=== PATIENT | female | born 1950 | race Caucasian/White ===

== ENCOUNTER → 2016-04-22 | Outpatient (CLI) | payer MEDICARE ==
[2016-04-22 12:14] LABS: MEAN CORPUSCULAR HEMOGLOBIN 30.2 pg (27.0-33.0); MEAN CORPUSCULAR HGB CONC 31.8 g/dl (32.0-36.5); MEAN CORPUSCULAR VOLUME 95.2 fl (80.0-96.0); RED CELL DISTRIBUTION WIDTH 12.5 % (11.5-14.5); WHITE BLOOD COUNT 7.1 K/mm3 (4.0-10.0)
[2016-04-22 12:28] LABS: ALBUMIN 3.8 GM/DL (3.2-5.2); ALBUMIN/GLOBULIN RATIO 1.23 (1.00-1.93); BILIRUBIN,TOTAL 0.4 MG/DL (0.2-1.0); CALCIUM LEVEL 9.1 MG/DL (8.8-10.2); CREATININE FOR GFR 1.16 MG/DL (0.55-1.02); GLOMERULAR FILTRATION RATE 49.8 (>45); POTASSIUM SERUM 4.1 MEQ/L (3.5-5.1); TOTAL PROTEIN 6.9 GM/DL (6.4-8.2)
== END ==
LOC: M WUC 08:48
PROVIDERS: ATTEND Nurse Practitioner Family
DX: E78.5 Hyperlipidemia, unspecified (principal); I10 Essential (primary) hypertension; D53.9 Nutritional anemia, unspecified; E55.9 Vitamin D deficiency, unspecified

== ENCOUNTER → 2016-09-30 | Outpatient (REF) | payer MEDICARE | LOC: M SFHCPLAZ 09:58 | PROVIDERS: ATTEND Family Medicine | DX: E66.01 Morbid (severe) obesity due to excess calories (principal); Z68.41 Body mass index [BMI] 40.0-44.9, adult; F33.42 Major depressive disorder, recurrent, in full remission; R35.1 Nocturia; Z79.899 Other long term (current) drug therapy | CPT/HCPCS: 83036; G0463 ==

== ENCOUNTER → 2017-07-26 | Outpatient (REF) | payer MEDICARE ==
[2017-07-26 14:24] LABS: ESTIMATED AVERAGE GLUCOSE 123 MG/DL (60-110); HEMOGLOBIN A1c 5.9 %
[2017-07-26 14:48] LABS: HEPATITIS C VIRUS ABY INDEX < 0.0 INDEX (<0.8)
== END ==
LOC: M SFHCPLAZ 10:37
DX: R73.03 Prediabetes (principal); Z11.59 Encounter for screening for other viral diseases; M75.22 Bicipital tendinitis, left shoulder
CPT/HCPCS: 83036

== ENCOUNTER → 2017-11-09 | Outpatient (CLI) | payer MEDICARE | LOC: M WUC 14:01 | DX: K52.9 Noninfective gastroenteritis and colitis, unspecified (principal) | CPT/HCPCS: 74018; G0463 ==

== ENCOUNTER → 2018-03-14 | Outpatient (CLI) | payer MEDICARE ==
--- NOTE | 2018-03-14 11:58 | REPMRS ---
Patient History The patient states she has not had a clinical breast exam in over a year. Patient is postmenopausal. No known family history of cancer. No Hormone Replacement Therapy Digital Woman Screen Mammo: March 14, 2018 - Exam #: [id number] Bilateral CC and MLO view(s) were taken. Technologist: Anjelica Khan, Technologist Prior study comparison: March 11, 2016, digital woman screen mammo performed at [facility]. January 10, 2014, bilateral bilat screen digital mammo, performed at [facility] ([facility] FINDINGS: The breast tissue is almost entirely fat. There has been no change in the appearance of the mammogram from the prior studies. There is no interval development of dominant mass, architectural distortion, or clustered microcalcification typical of malignancy. 3-D tomosynthesis shows no additional findings. Assessment: BI-RADS/ACR category 1 mammogram. Negative. Recommendation Routine screening mammogram of both breasts in 1 year (for women over age 40). This patient's Lifetime Breast Cancer RIsk is estimated at 3.1 %. This mammogram was interpreted with the aid of an FDA-approved computer-aided dectection system. Electronically Signed By: Christiano Jo MD 03/14/18 3431
--- NOTE | 2018-03-20 11:27 | DEXA ---
AP SPINE L1 - L4 1.308 0.9 2.5 LT FEMUR TOTAL 1.028 0.2 1.5 LT NECK 0.893 -1.0 0.6 RT FEMUR TOTAL 0.963 -0.4 1.0 RT NECK 0.905 -1.0 0.6 TOTAL BODY TOTAL OTHER COMMENTS: Normal bone densitometry of the spine. There is low bone density of the hips. The density of the spine is increased 16.5% since the initial exam on 03/16/2004. The spine density has increased 1.9% since the most recent exam on 03/11/2016. The density of the left hip has increased 19.1% since the initial exam on 03/16/2004. The density of the left hip has increased 2.1% since the most recent exam on 03/11/2016. The density of the right hip has increased 16.9% since the initial exam on 03/16/2004. The density of the right hip has decreased 0.7% since the most recent exam on 03/11/2016. FOLLOW-UP: Recommendation for the next bone density exam: 2 years. JOSE
== END ==
LOC: M WHC 10:06
PROVIDERS: ATTEND Family Medicine
DX: Z12.31 Encounter for screening mammogram for malignant neoplasm of breast (principal); R73.03 Prediabetes; Z13.820 Encounter for screening for osteoporosis; Z78.0 Asymptomatic menopausal state

== ENCOUNTER → 2018-08-10 | Outpatient (RCR) | payer MEDICARE | LOC: M PT 07-30 13:15 | PROVIDERS: ATTEND Family Medicine | DX: M67.912 Unspecified disorder of synovium and tendon, left shoulder (principal) ==

== ENCOUNTER 2018-09-06 13:42 | Outpatient (RCR) | payer MEDICARE | END 2018-09-09 | LOC: M PT 13:42 | PROVIDERS: ATTEND Family Medicine | DX: M67.912 Unspecified disorder of synovium and tendon, left shoulder (principal) ==

== ENCOUNTER 2018-09-25 13:45 | Outpatient (RCR) | payer MEDICARE | END 2018-10-10 | LOC: M PT 13:45 | PROVIDERS: ATTEND Family Medicine | DX: Z51.89 Encounter for other specified aftercare (principal); M67.912 Unspecified disorder of synovium and tendon, left shoulder ==

== ENCOUNTER → 2018-10-05 | Outpatient (CLI) | payer MEDICARE ==
--- NOTE | 2018-10-05 10:48 | REP ---
Sternoclavicular joints three views: There is no evidence of fracture or dislocation on these plain film views. However, CT is more sensitive in identifying sternoclavicular dislocation, if felt clinically indicated. Electronically Signed by Manuel Ojeda MD 10/05/2018 10:39 A
--- NOTE | 2018-10-05 10:48 | REP ---
Left shoulder three views : There is no fracture or dislocation. Mineralization and joint spaces are normal. There are no calcifications or foreign bodies. Impression: Negative left shoulder . Electronically Signed by Manuel Ojeda MD 10/05/2018 10:39 A
== END ==
LOC: M WUC 09:59
PROVIDERS: ATTEND Family Medicine
DX: M67.912 Unspecified disorder of synovium and tendon, left shoulder (principal); M25.512 Pain in left shoulder

== ENCOUNTER → 2018-12-05 | Outpatient (REF) | payer MEDICARE ==
[2018-12-05 17:28] LABS: ALBUMIN 3.9 GM/DL (3.2-5.2); ALT/SGPT 17 U/L (12-78); BILIRUBIN,TOTAL 0.4 MG/DL (0.2-1.0); BLOOD UREA NITROGEN 13 MG/DL (7-18); CALCIUM LEVEL 9.7 MG/DL (8.8-10.2); CARBON DIOXIDE LEVEL 27 MEQ/L (21-32); CHLORIDE LEVEL 104 MEQ/L (98-107); CHOLESTEROL LEVEL 199 MG/DL (<200); CHOLESTEROL RISK RATIO 2.618 (<5); CREATININE FOR GFR 0.96 MG/DL (0.55-1.30); GLOMERULAR FILTRATION RATE > 60.0 (>45); GLUCOSE, FASTING 106 MG/DL (70-100); HDL CHOLESTEROL 76 MG/DL (>40); LDL CHOLESTEROL 103 MG/DL (<100); NON-HDL-C 123 MG/DL; POTASSIUM SERUM 4.1 MEQ/L (3.5-5.1); SODIUM LEVEL 141 MEQ/L (136-145); TOTAL PROTEIN 7.3 GM/DL (6.4-8.2); TRIGLYCERIDES LEVEL 101 MG/DL (<150)
[2018-12-05 18:00] LABS: HEMOGLOBIN A1c 5.5 %
== END ==
LOC: M SFHCPLAZ 15:37
PROVIDERS: ATTEND Family Medicine
DX: R73.03 Prediabetes (principal)
CPT/HCPCS: 36415; 80053; 80061; 83036; G0463

== ENCOUNTER 2018-12-11 13:54 | Outpatient (RCR) | payer MEDICARE | END 2019-01-10 | LOC: M PT 13:54 | PROVIDERS: ATTEND Physician Assistant | DX: M50.30 Other cervical disc degeneration, unspecified cervical region (principal) ==

== ENCOUNTER → 2019-01-25 | Outpatient (CLI) | payer MEDICARE ==
--- NOTE | 2019-01-25 14:06 | REP ---
MRI cervical spine: 01/25/2019. Indication: Neck pain. Comparison: None. Technique: Multiplanar short and long TR sequences of the cervical spine were obtained without IV Gadolinium. Findings: Image quality is degraded by patient motion. Vertebral body alignment is within anatomical limits. New upper thoracic interosseous hemangiomas are noted. There are no areas of worrisome marrow signal. No abnormal cord signal is detected. The craniocervical junction is unremarkable. C2/C3: There is no focal disc herniation or significant spinal canal / neural foraminal narrowing. C3/C4: Mild diffuse disc bulge is present without significant spinal canal / neural foraminal narrowing. C4/C5: Diffuse disc osteophyte complex is present with minimal flattening of the ventral thecal sac and mild bilateral neural foraminal narrowing. C5/C6: Mild diffuse disc bulge and tiny posterior central annular fissure are present without significant spinal canal or neural foraminal narrowing. C6/C7 and C7/T1: There is no focal disc herniation or significant spinal canal / neural foraminal narrowing. Impression: Multilevel degenerative sequelae of the cervical spine as described without significant spinal canal narrowing/cord compression. Electronically Signed by Brock Soria DO 01/25/2019 01:57 P
== END ==
LOC: M RAD 10:07
PROVIDERS: ATTEND Physician Assistant
DX: M50.21 Other cervical disc displacement, high cervical region (principal); M50.222 Other cervical disc displacement at C5-C6 level; M25.78 Osteophyte, vertebrae

== ENCOUNTER → 2019-06-06 | Outpatient (REF) | payer MEDICARE ==
[2019-06-06 13:26] LABS: CALCIUM LEVEL 9.6 MG/DL (8.8-10.2); CHOLESTEROL RISK RATIO 2.236 (<5); GLOMERULAR FILTRATION RATE 58.5 (>45); POTASSIUM SERUM 4.2 MEQ/L (3.5-5.1)
== END ==
LOC: M SFHCPLAZ 09:37
PROVIDERS: ATTEND Family Medicine
DX: E78.2 Mixed hyperlipidemia (principal); I10 Essential (primary) hypertension
CPT/HCPCS: 36415; 80048; 80061; G0463

== ENCOUNTER → 2019-08-25 | Outpatient (CLI) | payer MEDICARE ==
[~2019-08-25] MED LIST: DICY1CAP8 PO; GABA-1171 PO; LIPI10TA PO; METO1TAB32 PO; PANT40TA3 PO; VITAD1000T PO
== END ==
LOC: M LABSMTC 10:22
PROVIDERS: ATTEND Anesthesiology
DX: Z03.818 Encounter for observation for suspected exposure to other biological agents ruled out (principal); Z11.59 Encounter for screening for other viral diseases
CPT/HCPCS: C9803; U0003

== ENCOUNTER 2019-08-28 11:12 | Day surgery (SDC) | payer MEDICARE, MEDICAID ==
[~2019-08-28] VITALS: Ht 160 cm; Wt 78.0 kg
[~2019-08-28 11:12] MED LIST changes: +D31000TA2 PO; +NS 1,000 ML IV ONE; +PANT40TA29 PO; -PANT40TA3 PO; -VITAD1000T PO
--- NOTE | 2019-08-28 13:19 | ROOR ---
Patient Name: Dena Nielsen Procedure Date: 08/28/2019 1:04 PM Date of : 1950 Age: 69 Room: [facility] Gender: Female Note Status: Finalized Procedure: Upper Endoscopy + Biopsies Indications: Heartburn, Exclusion of Fleming's esophagus Providers: Mehrdad Cancino MD Referring MD: Kasandra Salinas MD Requesting Provider: Medicines: Monitored Anesthesia Care Complications: No immediate complications. Procedure: Pre-Anesthesia Assessment: - The heart rate, respiratory rate, oxygen saturations, blood pressure, adequacy of pulmonary ventilation, and response to care were monitored throughout the procedure. The Endoscope was introduced through the mouth, and advanced to the second part of duodenum. The upper GI endoscopy was accomplished without difficulty. The patient tolerated the procedure well. Findings: The Z-line was irregular and was found 35 cm from the incisors. Multiple biopsies were obtained with cold forceps for evaluation to rule out Fleming's Esophagus randomly at the gastroesophageal junction. A small hiatal hernia was present. No other significant abnormalities were identified in a careful examination of the stomach. The exam of the duodenum was otherwise normal. Impression: - Z-line irregular, 35 cm from the incisors. - Small hiatal hernia. - Multiple biopsies were obtained at the gastroesophageal junction. - The examination was otherwise normal. Recommendation: - Patient has a contact number available for emergencies. The signs and symptoms of potential delayed complications were discussed with the patient. Return to normal activities tomorrow. Written discharge instructions were provided to the patient. - High fiber diet. - Discharge patient to home. - Continue present medications. - Await pathology results. - Telephone GI clinic for pathology results in 1 week. - Return to referring physician. - The findings and recommendations were discussed with the patient's family. Mehrdad Cancino MD Mehrdad Cancino MD 08/28/2019 1:18:41 PM Electronically signed by Mehrdad Cancino MD Number of Addenda: 0 Note Initiated On: 08/28/2019 1:04 PM Estimated Blood Loss: Estimated blood loss: none.
--- NOTE | 2019-08-28 13:35 | ROOR ---
Patient Name: Dnea Nielsen Procedure Date: 08/28/2019 1:05 PM Date of : 1950 Age: 69 Room: [facility] Gender: Female Note Status: Finalized Procedure: Total Colonoscopy to Cecum Indications: High risk colon cancer surveillance: Personal history of colonic polyps Providers: Mehrdad Cancino MD Referring MD: Kasandra Salinas MD Requesting Provider: Medicines: Monitored Anesthesia Care Complications: No immediate complications. Procedure: Pre-Anesthesia Assessment: - The heart rate, respiratory rate, oxygen saturations, blood pressure, adequacy of pulmonary ventilation, and response to care were monitored throughout the procedure. The Colonoscope was introduced through the anus and advanced to the cecum, identified by appendiceal orifice and ileocecal valve. The colonoscopy was performed without difficulty. The patient tolerated the procedure well. The quality of the bowel preparation was excellent. Findings: The perianal and digital rectal examinations were normal. Non-bleeding internal hemorrhoids were found during retroflexion. The hemorrhoids were small and Grade I (internal hemorrhoids that do not prolapse). Multiple small and large-mouthed diverticula were found in the recto-sigmoid colon, sigmoid colon and descending colon. The exam was otherwise without abnormality on direct and retroflexion views. Impression: - Non-bleeding internal hemorrhoids. - Diverticulosis in the recto-sigmoid colon, in the sigmoid colon and in the descending colon. - The examination was otherwise normal on direct and retroflexion views. - No specimens collected. - The exam was otherwise normal to the cecum. Recommendation: - Patient has a contact number available for emergencies. The signs and symptoms of potential delayed complications were discussed with the patient. Return to normal activities tomorrow. Written discharge instructions were provided to the patient. - High fiber diet. - Discharge patient to home. - Continue present medications. - Repeat colonoscopy in 5 years for surveillance. - Return to referring physician. - The findings and recommendations were discussed with the patient. Mehrdad Cancino MD Mehrdad Cancino MD 08/28/2019 1:34:57 PM Electronically signed by Mehrdad Cancino MD Number of Addenda: 0 Note Initiated On: 08/28/2019 1:05 PM Estimated Blood Loss: Estimated blood loss: none.
[2019-08-28] MEDS ORDERED: propofoL 500 MG/50 ML VIAL As Ordered ONE (13:40)
[2019-08-28] MEDS ORDERED: LIDOCAINE 2% 100MG/5ML SDV (FOR ANES.) As Ordered ONE (13:40)
[2019-08-28] MEDS ORDERED: fentaNYL 100 MCG/2 ML INJECTION (J3010) As Ordered ONE (13:40)
[2019-08-28 14:00] VITALS: BP 133/82
== END 2019-08-28 15:08 | disposition home or self-care (01) ==
LOC: M OPP 11:12
PROVIDERS: ATTEND Internal Medicine Gastroenterology
DX: Z12.11 Encounter for screening for malignant neoplasm of colon (principal); Z86.010 Personal history of colon polyps; K64.0 First degree hemorrhoids; K57.30 Diverticulosis of large intestine without perforation or abscess without bleeding; K22.8 Other specified diseases of esophagus; K44.9 Diaphragmatic hernia without obstruction or gangrene; R12 Heartburn; I10 Essential (primary) hypertension; Z79.899 Other long term (current) drug therapy; Z88.5 Allergy status to narcotic agent
CPT/HCPCS: 43239; 88305; G0105; J3010

== ENCOUNTER → 2019-09-02 | Outpatient (CLI) | payer MEDICARE, MEDICAID ==
[~2019-09-02] MED LIST changes: -NS 1,000 ML IV ONE
[2019-09-02 16:41] LABS: CALCIUM LEVEL 9.7 MG/DL (8.8-10.2); CREATININE FOR GFR 1.06 MG/DL (0.55-1.30); GLOMERULAR FILTRATION RATE 54.7 (>45); POTASSIUM SERUM 4.7 MEQ/L (3.5-5.1)
== END ==
LOC: M WUC 11:02
PROVIDERS: ATTEND Family Medicine
DX: I10 Essential (primary) hypertension (principal)

== ENCOUNTER → 2020-01-31 | Outpatient (CLI) | payer MEDICARE | LOC: M LABSMTC 09:38 | PROVIDERS: ATTEND Orthopaedic Surgery | DX: Z01.812 Encounter for preprocedural laboratory examination (principal); Z20.828 Contact with and (suspected) exposure to other viral communicable diseases ==

== ENCOUNTER → 2020-03-16 | Outpatient (CLI) | payer MEDICARE ==
--- NOTE | 2020-03-16 09:42 | REPMRS ---
Patient History The patient states she has not had a clinical breast exam in over a year. No known family history of cancer. No Hormone Replacement Therapy 3D TOMOSYNTHESIS WAS PERFORMED. [facility] 2.[facility]%. Volpara breast density b. Digital Woman Screen Mammo: March 16, 2020 - Exam #: [id number] Bilateral CC and MLO view(s) were taken. Technologist: Alejandra Armenta, Technologist Prior study comparison: March 14, 2018, bilateral digital woman screen mammo performed at [facility] [place] [facility]. March 11, 2016, digital woman screen mammo performed at [facility]. FINDINGS: There are scattered fibroglandular densities. There has been no change in the appearance of the mammogram from the prior studies. There is a mild amount of residual fibroglandular tissue which is fairly symmetric. There is no interval development of dominant mass, architectural distortion, or clustered microcalcification suggestive of malignancy. Assessment: BI-RADS/ACR category 1 mammogram. Negative Mammogram. Recommendation Routine screening mammogram in 1 year (for women over age 40). This mammogram was interpreted with the aid of an FDA-approved computer-aided dectection system. Electronically Signed By: Manuel Narvaez MD 03/16/20 0942
== END ==
LOC: M WHC 08:18
PROVIDERS: ATTEND Family Medicine
DX: Z12.31 Encounter for screening mammogram for malignant neoplasm of breast (principal)
CPT/HCPCS: 36415; 77063; 77067; 80048; G0463

== ENCOUNTER → 2020-03-16 | Outpatient (REF) | payer MEDICARE ==
[2020-03-16 12:56] LABS: BLOOD UREA NITROGEN 14 MG/DL (7-18); CALCIUM LEVEL 9.5 MG/DL (8.8-10.2); CARBON DIOXIDE LEVEL 28 MEQ/L (21-32); CHLORIDE LEVEL 105 MEQ/L (98-107); CREATININE FOR GFR 0.96 MG/DL (0.55-1.30); GLOMERULAR FILTRATION RATE > 60.0 (>39); GLUCOSE, FASTING 96 MG/DL (70-100); SODIUM LEVEL 139 MEQ/L (136-145)
== END ==
LOC: M PLALAB 08:52
PROVIDERS: ATTEND Family Medicine
DX: I10 Essential (primary) hypertension (principal)

== ENCOUNTER → 2020-09-29 | Outpatient (CLI) | payer MEDICARE, MEDICAID ==
[~2020-09-29] MED LIST changes: +FLUO10CA16 PO; +LEVOTAB10 PO; +LOSA25TA14 PO; +VENTAER INH
--- NOTE | 2020-09-29 14:06 | REPVR ---
PROCEDURE INFORMATION: Exam: MR Cervical Spine Without Contrast Exam date and time: 09/29/2020 12:55 PM Age: 70 years old Clinical indication: Radicular pain (radiculopathy); Cervical region; Additional info: Radiculopathy cervical region TECHNIQUE: Imaging protocol: Multiplanar magnetic resonance images of the cervical spine without contrast. COMPARISON: MRI-Spine,Cervical without con 01/25/2019 11:39 AM FINDINGS: Vertebrae: There is minimal retrolisthesis C4 on C5. There is normal lordosis. Craniocervical junction appears normal with normal position of cerebellar tonsils. There is disc desiccation. There is moderate disc height loss at C4-C5. Spinal cord: Cervical spinal cord signal is normal without intrinsic cord lesions. C2-C3: There is no significant disc bulge. There is no significant cord compression. There is no neural foraminal or spinal stenosis. C3-C4: There is mild posterior osteophyte disc complex. There is no significant cord compression or spinal stenosis. There are is no significant neural foraminal narrowing. C4-C5: There is mild posterior osteophyte disc complex. There is no significant cord compression or spinal stenosis. There are uncinate and facet osteophytes with moderate right and no significant left neural foraminal narrowing. C5-C6: There is mild posterior osteophyte disc complex. There is no significant cord compression or spinal stenosis. There are right uncinate and facet osteophytes with mild right and no significant left neural foraminal narrowing. C6-C7: There is new low signal within the left facet joints evident on T1 weighted images and this shows increased signal on STIR images with possible surrounding increased signal in the adjacent soft tissues. This could be inflammatory changes associated with arthritis or infection. There appears to be asymmetric soft tissue density in the left neural foramen on the axial T1 weighted images, for instance image 7. Recommend patient return for postcontrast imaging with axial and sagittal postcontrast images both with and without fat saturation. It may also be helpful to correlate with CT to determine if there are bony density change or erosive change. There is minimal disc bulge. There is no significant cord compression or spinal stenosis. There is no neural foraminal narrowing. C7-T1: There is minimal disc bulge. There is no significant cord compression. There is no neural foraminal or spinal stenosis. Soft tissues: Unremarkable. Paranasal sinuses: There is fluid in bilateral maxillary sinuses. Vertebral arteries: Expected flow voids in the vertebral arteries. IMPRESSION: 1. C6-C7 shows new abnormal marrow signal in the left facets. There appears to be some surrounding soft tissue density. Inflammatory or infectious etiology should be considered. Recommend postcontrast MRI with sagittal on axial imaging both without and with fat saturation as well as coronal postcontrast images without fat saturation. Correlation with CT may also be helpful. 2. Stable degenerative changes with right neural foraminal narrowing C4-C5 and C5-C6. No spinal stenosis or cord impingement. Electronically signed by: Rola Sanchez On 09/29/2020 14:06:02 PM
== END ==
LOC: M RAD 11:29
PROVIDERS: ATTEND Physician Assistant
DX: M54.12 Radiculopathy, cervical region (principal)

== ENCOUNTER 2020-10-06 09:11 | Emergency (ER) | payer MEDICARE, MEDICAID ==
[~2020-10-06] VITALS: Ht 160 cm; Wt 85.8 kg
[~2020-10-06 09:11] MED LIST changes: -FLUO10CA16 PO; -LEVOTAB10 PO; -LOSA25TA14 PO; -VENTAER INH
[2020-10-06] MEDS ORDERED: LEVOTAB10 PO (09:19)
[2020-10-06] MEDS ORDERED: LOSA25TA14 PO (09:19)
[2020-10-06] MEDS ORDERED: FLUO10CA16 PO (09:19)
[2020-10-06] MEDS ORDERED: COMBIVENT RESPIMAT 100-20MCG INHALER 4GM INH STA (11:33)
[2020-10-06] MEDS ORDERED: ACETAMINOPHEN 325 MG TAB PO ONE (11:35)
[2020-10-06 11:47] LABS: RSV AMPLIFICATION NEGATIVE (NEGATIVE)
--- NOTE | 2020-10-06 12:02 | REP ---
INDICATION: cough, chest pain, shortness of breath. COMPARISON: Comparison chest x-ray is from 03 April 2015. TECHNIQUE: Two views.. FINDINGS: There is bibasilar pattern of platelike atelectasis right more so than left. No focal infiltrate is appreciated. Pleural angles are sharp. Heart is not felt to be enlarged. Pulmonary vasculature is not increased. No acute bony abnormality is appreciated. IMPRESSION: Bibasilar platelike atelectasis, right greater than left. Otherwise no acute disease.. <Electronically signed by Christiano Jo > 10/06/20 0411
[2020-10-06 12:11] LABS: BASO % 0.5 % (0.0-1.0); EOS # 0.1 10^3/uL (0.0-0.5); HEMATOCRIT 44.5 % (36.0-47.0); HEMOGLOBIN 14.1 g/dl (12.0-15.5); LYMPH # 1.3 10^3/uL (1.5-5.0); LYMPH % 22.1 % (24.0-44.0); MEAN CORPUSCULAR HEMOGLOBIN 30.5 pg (27.0-33.0); MEAN CORPUSCULAR HGB CONC 31.7 g/dl (32.0-36.5); MEAN CORPUSCULAR VOLUME 96.1 fl (80.0-96.0); MONO # 0.7 10^3/uL (0.0-0.8); MONO % 11.4 % (2.0-8.0); NEUTROPHILS # 3.7 10^3/uL (1.5-8.5); NEUTROPHILS % 63.8 % (36.0-66.0); PLATELET COUNT, AUTOMATED 207 10^3/uL (150-450); RED BLOOD COUNT 4.63 10^6/uL (4.00-5.40); WHITE BLOOD COUNT 5.9 10^3/uL (4.0-10.0)
[2020-10-06 12:27] LABS: INR 0.97; PROTHROMBIN TIME 13.1 SECONDS (12.5-14.3)
[2020-10-06 12:28] LABS: PARTIAL THROMBOPLASTIN TIME 27.1 SECONDS (24.2-38.5)
[2020-10-06 12:31] LABS: D-DIMER QUANT 744.76 ng/ml (<500)
[2020-10-06 12:54] LABS: ALT/SGPT 20 U/L (12-78); BILIRUBIN,TOTAL 0.4 MG/DL (0.2-1.0); BLOOD UREA NITROGEN 13 MG/DL (7-18); C REACTIVE PROTEIN QUANTITATIV 0.93 MG/DL (0.00-0.30); CALCIUM LEVEL 9.2 MG/DL (8.8-10.2); CARBON DIOXIDE LEVEL 26 MEQ/L (21-32); CHLORIDE LEVEL 104 MEQ/L (98-107); CK-MB VALUE MASS < 1.0 NG/ML (<3.6); CPK CREATINE PHOSPHOKINASE 46 U/L (26-192); CREATININE FOR GFR 1.08 MG/DL (0.55-1.30); FERRITIN 70 NG/ML (8-252); GLOMERULAR FILTRATION RATE 53.4 (>39); GLUCOSE, FASTING 104 MG/DL (70-100); LDH LACTATE DEHYDROGENASE 166 U/L (84-246); MB/CK RELATIVE INDEX 2.17 (< OR =4); POTASSIUM SERUM 4.2 MEQ/L (3.5-5.1); SODIUM LEVEL 137 MEQ/L (136-145); TOTAL PROTEIN 7.5 GM/DL (6.4-8.2); TROPONIN I < 0.02 NG/ML (< 0.10)
[2020-10-06] MEDS ORDERED: ISOVUE-370 76% 100ML VIAL As Ordered ONE (13:38)
--- NOTE | 2020-10-06 14:22 | REP ---
INDICATION: shortness of breath, cough, chesst pain, ro PE. COMPARISON: 06/23/2015. TECHNIQUE: CT angiogram chest performed following the intravenous administration of 100 cc of Isovue 370. Sagittal and coronal reconstruction and MIP reformatted images are provided. FINDINGS: Lungs: The lung gibson are well inflated. Patchy peripheral areas of subsegmental atelectasis or early infiltrates noted bilaterally. Some linear atelectatic change lateral basal segment right lower lobe. No pleural effusion, focal pleural thickening, calcified pleural plaque or mass noted. No definite nodules. There is no pneumothorax. Mediastinum: 2 prevascular space nodes are 6 mm short axis, not considered enlarged. No mediastinal mass. Pulmonary arteries: No evidence of pulmonary embolism. Sherri: No pathologic sized adenopathy. Axilla: No adenopathy. Pleura: No effusion. Heart: Not enlarged but there is left atrial enlargement. No pericardial thickening or effusion.. Thoracic aorta: No aneurysm or dissection. Upper abdominal structures: Small to moderate-sized hiatal hernia again seen. Post cholecystectomy changes stable. Adrenal glands are normal. Upper poles of kidneys unchanged. Upper abdominal aorta shows no aneurysm or dissection. Visualized osseous structures: Unremarkable. IMPRESSION: No CT evidence of pulmonary peripheral areas of subsegmental atelectasis or early infiltrate noted bilaterally and some linear atelectatic changes lateral basal segment of the right lower lobe. No effusion, dense consolidation with air bronchograms, focal pleural thickening calcified plaque. No definite nodule. No CT evidence of pulmonary embolism and no aortic aneurysm or dissection. Mediastinum, cardiac silhouette, sherri, axilla, pleura and thoracic aortic contours unremarkable. Small to moderate-sized hiatal hernia unchanged. <Electronically signed by Nuno Hopson > 10/06/20 [id number]
[2020-10-06] MEDS ORDERED: VENTAER INH (14:26)
[2020-10-06 14:34] VITALS: BP 159/74
--- NOTE | 2020-10-08 07:16 | ECGEPIP ---
[facility] - ED Test Date: 2020-10-06 Pat Name: DEANNE JAVIER Department: Room: - Gender: Female Appellate [address] Clerk: MACKENZIE : 1950 Requested By: SEAN Roth PA-C Order Number: [id number] Reading MD: Ariel Henson Measurements Intervals Cullen Rate: 76 P: 67 NE: 144 QRS: 78 QRSD: 124 T: 18 QT: 420 QTc: 472 Interpretive Statements Normal sinus rhythm Right bundle branch block BASELINE ARTIFACT AFFECTS INTERPRETATION SIMILAR TO 07/23/15 Electronically Signed on 10-08-2020 7:16:23 EDT by Ariel Henson
== END 2020-10-06 14:35 | disposition home or self-care (01) ==
LOC: M ED 09:11
DX: R05 Cough (principal); R11.0 Nausea; B34.8 Other viral infections of unspecified site; I10 Essential (primary) hypertension; E78.5 Hyperlipidemia, unspecified; K21.9 Gastro-esophageal reflux disease without esophagitis; Z88.5 Allergy status to narcotic agent; Z79.899 Other long term (current) drug therapy
CPT/HCPCS: 36415; 71046; 71275; 80053; 82550; 82553; 82728; 83605; 83615; 84145; 84484; 85025; 85379; 85384; 85610; 85730; 86140; 87040; 87631; 87798; 93005; 99284; Q9967

== ENCOUNTER → 2020-10-08 | Outpatient (CLI) | payer MEDICARE, MEDICAID ==
[~2020-10-08] MED LIST changes: +FLUO10CA16 PO; +LEVOTAB10 PO; +LOSA25TA14 PO; +VENTAER INH
[2020-10-08 14:11] LABS: BILIRUBIN,TOTAL 0.5 MG/DL (0.2-1.0); CALCIUM LEVEL 9.2 MG/DL (8.8-10.2); CHOLESTEROL RISK RATIO 2.606 (<5); CREATININE FOR GFR 1.03 MG/DL (0.55-1.30); GLOMERULAR FILTRATION RATE 56.4 (>39); POTASSIUM SERUM 4.3 MEQ/L (3.5-5.1); TOTAL PROTEIN 7.3 GM/DL (6.4-8.2)
== END ==
LOC: M PLALAB 10:22
PROVIDERS: ATTEND Family Medicine
DX: I10 Essential (primary) hypertension (principal); E78.2 Mixed hyperlipidemia

== ENCOUNTER → 2020-10-30 | Outpatient (CLI) | payer MEDICARE, MEDICAID ==
--- NOTE | 2020-11-01 11:06 | REPVR ---
PROCEDURE INFORMATION: Exam: MR Cervical Spine With Contrast Exam date and time: 10/30/2020 4:12 PM Age: 70 years old Clinical indication: Neck pain; Additional info: Disc displacement, R/O infection vs ddd TECHNIQUE: Imaging protocol: Multiplanar magnetic resonance images of the cervical spine with contrast. Contrast material: PROHANCE; Contrast volume: 8 ml; Contrast route: INTRAVENOUS (IV); COMPARISON: MRI-Spine,Cervical without con 09/29/2020 12:05 PM FINDINGS: On the axial images without fat saturation and sagittal images without fat saturation, I do not see well-defined enhancement of nasal turbinates or pharyngeal mucosal space and therefore it is unclear if some or all of the contrast dose was extravasated. There is definite soft tissue density within the left neural foramen at the C6-C7 level involving the C7 neural foramen. There is continued low signal on T1 weighted images of the left C6-C7 facets. There is surrounding ill-defined signal better seen on prior non contrasted images in the soft tissue surrounding the facet joint. Considerations remain that this is inflammatory related to arthritis or could relate to facet joint infection. Would consider follow-up CT to evaluate for bony changes and cortical erosive changes. Neoplastic etiology is also a consideration. IMPRESSION: Findings left C6-C7 facet joint again seen with surrounding soft tissue changes around facet and extending into left C7 neural foramen. Considerations include inflammatory change related to facet arthritis, infection of facet joints, or infiltrative neoplasm. Electronically signed by: Rola Sanchez On 11/01/2020 11:06:30 AM
== END ==
LOC: M PLARAD 13:28
PROVIDERS: ATTEND Physician Assistant
DX: M50.222 Other cervical disc displacement at C5-C6 level (principal)

== ENCOUNTER → 2020-11-19 | Outpatient (CLI) | payer MEDICARE, MEDICAID ==
[2020-11-19 15:51] LABS: BASO # 0.1 10^3/uL (0.0-0.2); BASO % 0.7 % (0.0-1.0); EOS # 0.2 10^3/uL (0.0-0.5); HEMATOCRIT 43.5 % (36.0-47.0); HEMOGLOBIN 13.8 g/dl (12.0-15.5); LYMPH # 3.1 10^3/uL (1.5-5.0); LYMPH % 43.8 % (24.0-44.0); MEAN CORPUSCULAR HEMOGLOBIN 30.5 pg (27.0-33.0); MEAN CORPUSCULAR HGB CONC 31.7 g/dl (32.0-36.5); MONO # 0.5 10^3/uL (0.0-0.8); MONO % 7.5 % (2.0-8.0); NEUTROPHILS # 3.2 10^3/uL (1.5-8.5); NEUTROPHILS % 44.7 % (36.0-66.0); PLATELET COUNT, AUTOMATED 290 10^3/uL (150-450); RED BLOOD COUNT 4.53 10^6/uL (4.00-5.40); WHITE BLOOD COUNT 7.1 10^3/uL (4.0-10.0)
[2020-11-19 16:40] LABS: ERYTHROCYTE SEDIMENTATION RATE 13 mm/hr (0-30)
== END ==
LOC: M WUC 14:20
PROVIDERS: ATTEND Physician Assistant
DX: M50.322 Other cervical disc degeneration at C5-C6 level (principal)

== ENCOUNTER → 2020-12-04 | Outpatient (CLI) | payer MEDICARE, MEDICAID ==
--- NOTE | 2020-12-04 13:14 | REP ---
INDICATION: CERVICAL DISC DISPLACEMENT C5-C6 ? C6/7 DDD VS INF. Neck pain with numbness down the left arm. COMPARISON: Comparison MRI cervical spine is from October 30, 2020. September 2020 MRI study is also reviewed. TECHNIQUE: Helical scanning is acquired and overlapping 2 mm high resolution axial images were generated and reviewed at bone and soft tissue window settings. Coronal and sagittal multiplanar re-formations images are generated. FINDINGS: Cervical vertebral body heights are preserved. Alignment is normal. There is diffuse degenerative spondylosis with degenerative disc disease at each cervical level to some degree. There is osteoarthritic facet hypertrophy also noted bilaterally at the at the midcervical levels most pronounced at C3-4 on the left and C6-7 and C5-6 on the left. The osteoarthritic facet disease on the left at C6-7 shows some sclerosis and fragmented spurring but no erosive change or bony destructive lesion is seen. Findings are consistent with osteoarthritis. Axial and sagittal images taken at the C2-3 disc level show minimal central disc bulging. No neural foraminal narrowing or spinal stenosis. At C3-4, there is mild posterior disc bulging and osteophytic ridging. Disc calcification is seen. Neural foramina appear adequate. At C4-5, there is similar posterior disc bulging, osteophytic ridging. There is mild bilateral uncovertebral spurring with minimal neural foraminal narrowing, right greater than left. At C5-C6, there is posterior osteophytic ridging and mild cyst central disc bulging. At C6-C7 there is mild disc calcification. Minimal bulging is present. Exam is otherwise unremarkable. IMPRESSION: Degenerative disc disease diffusely. Osteoarthritic facet changes most pronounced on the left at C6-7. No bony destructive or erosive changes seen to suggest infectious or neoplastic etiology. <Electronically signed by Christiano Jo > 12/04/20 3441
== END ==
LOC: M PLAIMG 12:37
PROVIDERS: ATTEND Physician Assistant
DX: M50.222 Other cervical disc displacement at C5-C6 level (principal)

== ENCOUNTER → 2021-04-12 | Outpatient (CLI) | payer MEDICARE, MEDICAID ==
[~2021-04-12] MED LIST changes: -FLUO10CA16 PO; +FLUO10CA18 PO; +LOSA25TA13 PO; -LOSA25TA14 PO
[2021-04-12 13:23] LABS: CALCIUM LEVEL 9.6 MG/DL (8.8-10.2); CREATININE FOR GFR 1.13 MG/DL (0.55-1.30); GLOMERULAR FILTRATION RATE 50.5 (>39)
== END ==
LOC: M PLALAB 10:13
PROVIDERS: ATTEND Family Medicine
DX: I10 Essential (primary) hypertension (principal)

== ENCOUNTER → 2021-10-05 | Outpatient (CLI) | payer MEDICARE, MEDICAID ==
[~2021-10-05] MED LIST changes: -D31000TA2 PO; +VITA100093 PO
[2021-10-05 16:24] LABS: BASO % 0.7 % (0.0-1.0); EOS # 0.2 10^3/uL (0.0-0.5); EOS % 3.1 % (0.0-3.0); HEMATOCRIT 40.9 % (36.0-47.0); HEMOGLOBIN 12.9 g/dl (12.0-15.5); LYMPH % 50.7 % (24.0-44.0); MEAN CORPUSCULAR HEMOGLOBIN 30.6 pg (27.0-33.0); MEAN CORPUSCULAR HGB CONC 31.5 g/dl (32.0-36.5); MEAN CORPUSCULAR VOLUME 96.9 fl (80.0-96.0); MONO # 0.5 10^3/uL (0.0-0.8); MONO % 8.4 % (2.0-8.0); NEUTROPHILS # 2.2 10^3/uL (1.5-8.5); NEUTROPHILS % 37.1 % (36.0-66.0); PLATELET COUNT, AUTOMATED 236 10^3/uL (150-450); RED BLOOD COUNT 4.22 10^6/uL (4.00-5.40); WHITE BLOOD COUNT 5.8 10^3/uL (4.0-10.0)
[2021-10-05 16:57] LABS: HEMOGLOBIN A1c 5.6 %
[2021-10-05 17:48] LABS: CREATININE, URINE 66.6 MG/DL; MALB URINE SIEMENS 10.5 MG/L; MAU/CREAT RATIO 15.7 MCG/MG (0.0-30.0)
[2021-10-05 18:05] LABS: C REACTIVE PROTEIN QUANTITATIV 0.3 MG/DL (0.00-0.30); CALCIUM LEVEL 9.5 MG/DL (8.8-10.2); CREATININE FOR GFR 1.04 MG/DL (0.55-1.30); GLOMERULAR FILTRATION RATE 55.6 (>39); POTASSIUM SERUM 4.1 MEQ/L (3.5-5.1)
== END ==
LOC: M WUC 12:02
PROVIDERS: ATTEND Internal Medicine Hematology
DX: G25.81 Restless legs syndrome (principal); I10 Essential (primary) hypertension; Z79.899 Other long term (current) drug therapy

== ENCOUNTER → 2022-04-11 | Outpatient (CLI) | payer MEDICARE, MEDICAID ==
[2022-04-11 14:45] LABS: HEMATOCRIT 45.7 % (36.0-47.0); HEMOGLOBIN 13.9 g/dl (12.0-15.5); MEAN CORPUSCULAR HEMOGLOBIN 29.8 pg (27.0-33.0); MEAN CORPUSCULAR HGB CONC 30.4 g/dl (32.0-36.5); MEAN CORPUSCULAR VOLUME 98.1 fl (80.0-96.0); PLATELET COUNT, AUTOMATED 283 10^3/uL (150-450); RED BLOOD COUNT 4.66 10^6/uL (4.00-5.40); WHITE BLOOD COUNT 7.3 10^3/uL (4.0-10.0)
[2022-04-11 14:52] LABS: HEMOGLOBIN A1c 5.3 % (4.0-6.0)
[2022-04-11 15:09] LABS: C REACTIVE PROTEIN QUANTITATIV < 0.40 MG/DL (<1.0)
[2022-04-11 15:10] LABS: THYROID STIMULATING HORMONE 1.209 uIU/ML (0.55-4.78)
[2022-04-11 15:11] LABS: FREE T4 1.07 NG/DL (0.89-1.76); TOTAL 25(OH) VITAMIN D 39.7 NG/ML (20.0-100.0); VITAMIN B12 LEVEL 181 PG/ML (211-911)
[2022-04-11 17:59] LABS: ALBUMIN 4.1 G/DL (3.2-5.2); ALKALINE PHOSPHATASE 88 U/L (46-116); ALT/SGPT 14 U/L (7.0-40); AST/SGOT 18 U/L (<34); BILIRUBIN,TOTAL 0.4 MG/DL (0.3-1.2); BLOOD UREA NITROGEN 14 MG/DL (9-23); CALCIUM LEVEL 9.5 MG/DL (8.3-10.6); CARBON DIOXIDE LEVEL 28 MMOL/L (20-31); CHLORIDE LEVEL 104 MMOL/L (98-107); CHOLESTEROL LEVEL 167 MG/DL (<200); CREATININE FOR GFR 0.94 MG/DL (0.55-1.30); GLOMERULAR FILTRATION RATE > 60.0 (>39); GLUCOSE, FASTING 110 MG/DL (74-106); HDL CHOLESTEROL 72.3 MG/DL (>40); LDL CHOLESTEROL 80.3 MG/DL (<100); NON-HDL-C 95 MG/DL; POTASSIUM SERUM 4.1 MMOL/L (3.5-5.1); SODIUM LEVEL 140 MMOL/L (136-145); TOTAL PROTEIN 7.1 G/DL (5.7-8.2); TRIGLYCERIDES LEVEL 72 MG/DL (<150)
== END ==
LOC: M PLALAB 10:13
PROVIDERS: ATTEND Internal Medicine Hematology
DX: I10 Essential (primary) hypertension (principal); Z79.899 Other long term (current) drug therapy

== ENCOUNTER → 2022-05-03 | Outpatient (CLI) | payer MEDICARE, MEDICAID | LOC: M WHC 10:27 | PROVIDERS: ATTEND Internal Medicine Hematology | DX: Z13.820 Encounter for screening for osteoporosis (principal); Z12.31 Encounter for screening mammogram for malignant neoplasm of breast; M85.851 Other specified disorders of bone density and structure, right thigh; M85.852 Other specified disorders of bone density and structure, left thigh ==

== ENCOUNTER → 2022-10-21 | Outpatient (CLI) | payer MEDICARE, MEDICAID ==
[2022-10-21 12:17] LABS: HEMATOCRIT 42.8 % (36.0-47.0); HEMOGLOBIN 13.7 g/dl (12.0-15.5); MEAN CORPUSCULAR HEMOGLOBIN 30.5 pg (27.0-33.0); MEAN CORPUSCULAR VOLUME 95.3 fl (80.0-96.0); PLATELET COUNT, AUTOMATED 249 10^3/uL (150-450); RED BLOOD COUNT 4.49 10^6/uL (4.00-5.40); WHITE BLOOD COUNT 6.2 10^3/uL (4.0-10.0)
[2022-10-21 12:28] LABS: HEMOGLOBIN A1c 5.9 % (4.0-6.0)
[2022-10-21 12:41] LABS: C REACTIVE PROTEIN QUANTITATIV < 0.40 MG/DL (<1.0)
[2022-10-21 12:46] LABS: ALKALINE PHOSPHATASE 79 U/L (46-116); ALT/SGPT 15 U/L (7.0-40); AST/SGOT 11 U/L (<34); BILIRUBIN,TOTAL 0.6 MG/DL (0.3-1.2); BLOOD UREA NITROGEN 17 MG/DL (9-23); CALCIUM LEVEL 9.4 MG/DL (8.3-10.6); CARBON DIOXIDE LEVEL 30 MMOL/L (20-31); CHLORIDE LEVEL 103 MMOL/L (98-107); CHOLESTEROL LEVEL 176 MG/DL (<200); CREATININE FOR GFR 0.94 MG/DL (0.55-1.30); FREE T4 1.04 NG/DL (0.89-1.76); GLOMERULAR FILTRATION RATE > 60.0 (>39); GLUCOSE, FASTING 110 MG/DL (74-106); HDL CHOLESTEROL 73.3 MG/DL (>40); LDL CHOLESTEROL 82.1 MG/DL (<100); NON-HDL-C 102.7 MG/DL; POTASSIUM SERUM 4.1 MMOL/L (3.5-5.1); SODIUM LEVEL 141 MMOL/L (136-145); THYROID STIMULATING HORMONE 1.218 uIU/ML (0.55-4.78); TOTAL 25(OH) VITAMIN D 53.4 NG/ML (20.0-100.0); TRIGLYCERIDES LEVEL 103 MG/DL (<150); VITAMIN B12 LEVEL 1011 PG/ML (211-911)
[2022-10-21 18:01] LABS: CREATININE, URINE 105.1 MG/DL; MALB URINE SIEMENS < 3.0 MG/L; MAU/CREAT RATIO 2.8 MCG/MG (0.0-30.0)
== END ==
LOC: M WUC 08:54
PROVIDERS: ATTEND Internal Medicine Hematology
DX: R73.03 Prediabetes (principal); M54.2 Cervicalgia

== ENCOUNTER → 2023-05-17 | Outpatient (CLI) | payer MEDICARE, MEDICAID ==
[2023-05-17 14:27] LABS: HEMATOCRIT 42.1 % (36.0-47.0); HEMOGLOBIN 13.6 g/dl (12.0-15.5); MEAN CORPUSCULAR HEMOGLOBIN 31.3 pg (27.0-33.0); MEAN CORPUSCULAR HGB CONC 32.3 g/dl (32.0-36.5); MEAN CORPUSCULAR VOLUME 96.8 fl (80.0-96.0); PLATELET COUNT, AUTOMATED 250 10^3/uL (150-450); RED BLOOD COUNT 4.35 10^6/uL (4.00-5.40); WHITE BLOOD COUNT 6.3 10^3/uL (4.0-10.0)
[2023-05-17 14:50] LABS: HEMOGLOBIN A1c 5.6 % (4.0-6.0)
[2023-05-17 14:58] LABS: C REACTIVE PROTEIN QUANTITATIV < 0.40 MG/DL (<1.0)
[2023-05-17 14:59] LABS: THYROID STIMULATING HORMONE 1.492 uIU/ML (0.55-4.78); TOTAL 25(OH) VITAMIN D 59.3 NG/ML (20.0-100.0)
[2023-05-17 15:00] LABS: ALBUMIN 3.9 G/DL (3.2-5.2); ALKALINE PHOSPHATASE 76 U/L (46-116); ALT/SGPT 12 U/L (7.0-40); AST/SGOT 11 U/L (<34); BILIRUBIN,TOTAL 0.6 MG/DL (0.3-1.2); BLOOD UREA NITROGEN 14 MG/DL (9-23); CALCIUM LEVEL 9.1 MG/DL (8.3-10.6); CARBON DIOXIDE LEVEL 30 MMOL/L (20-31); CHLORIDE LEVEL 105 MMOL/L (98-107); CHOLESTEROL LEVEL 157 MG/DL (<200); CHOLESTEROL RISK RATIO 2.33 (<5); CREATININE FOR GFR 0.96 MG/DL (0.55-1.30); FREE T4 1.11 NG/DL (0.89-1.76); GLOMERULAR FILTRATION RATE > 60.0 (>39); GLUCOSE, FASTING 106 MG/DL (74-106); HDL CHOLESTEROL 67.1 MG/DL (>40); LDL CHOLESTEROL 73.7 MG/DL (<100); NON-HDL-C 89.9 MG/DL; POTASSIUM SERUM 4.3 MMOL/L (3.5-5.1); SODIUM LEVEL 142 MMOL/L (136-145); TOTAL PROTEIN 6.7 G/DL (5.7-8.2); TRIGLYCERIDES LEVEL 81 MG/DL (<150); VITAMIN B12 LEVEL 479 PG/ML (211-911)
== END ==
LOC: M PLALAB 09:31
PROVIDERS: ATTEND Internal Medicine Hematology
DX: R73.03 Prediabetes (principal); Z79.899 Other long term (current) drug therapy

== ENCOUNTER → 2023-07-20 | Outpatient (CLI) | payer MEDICARE, MEDICAID ==
[~2023-07-20] MED LIST changes: +FLUO-290 PO; -FLUO10CA18 PO
== END ==
LOC: M PLAIMG 11:50
PROVIDERS: ATTEND Internal Medicine Hematology
DX: M19.011 Primary osteoarthritis, right shoulder (principal)

== ENCOUNTER → 2023-11-20 | Outpatient (CLI) | payer MEDICARE, MEDICAID ==
[2023-11-20 12:45] LABS: BASO # 0.1 10^3/uL (0.0-0.2); BASO % 0.8 % (0.0-1.0); EOS # 0.2 10^3/uL (0.0-0.5); EOS % 2.3 % (0.0-3.0); HEMATOCRIT 42.7 % (36.0-47.0); HEMOGLOBIN 13.7 g/dl (12.0-15.5); LYMPH # 2.3 10^3/uL (1.5-5.0); LYMPH % 35.7 % (24.0-44.0); MEAN CORPUSCULAR HEMOGLOBIN 31.4 pg (27.0-33.0); MEAN CORPUSCULAR HGB CONC 32.1 g/dl (32.0-36.5); MEAN CORPUSCULAR VOLUME 97.7 fl (80.0-96.0); MONO # 0.6 10^3/uL (0.0-0.8); MONO % 8.4 % (2.0-8.0); NEUTROPHILS # 3.4 10^3/uL (1.5-8.5); NEUTROPHILS % 52.5 % (36.0-66.0); PLATELET COUNT, AUTOMATED 265 10^3/uL (150-450); RED BLOOD COUNT 4.37 10^6/uL (4.00-5.40); WHITE BLOOD COUNT 6.5 10^3/uL (4.0-10.0)
[2023-11-20 13:08] LABS: HEMOGLOBIN A1c 5.5 % (4.0-6.0)
[2023-11-20 13:10] LABS: CREATININE, URINE 81.8 MG/DL; MALB URINE SIEMENS < 3.0 MG/L; MAU/CREAT RATIO 3.6 MCG/MG (0.0-30.0)
[2023-11-20 13:11] LABS: C REACTIVE PROTEIN QUANTITATIV < 0.40 MG/DL (<1.0)
[2023-11-20 13:13] LABS: ALBUMIN 3.9 G/DL (3.2-5.2); ALKALINE PHOSPHATASE 90 U/L (46-116); ALT/SGPT 12 U/L (7.0-40); AST/SGOT 9 U/L (<34); BILIRUBIN,TOTAL 0.5 MG/DL (0.3-1.2); BLOOD UREA NITROGEN 13 MG/DL (9-23); CALCIUM LEVEL 9.8 MG/DL (8.3-10.6); CARBON DIOXIDE LEVEL 27 MMOL/L (20-31); CHLORIDE LEVEL 108 MMOL/L (98-107); CHOLESTEROL LEVEL 178 MG/DL (<200); CHOLESTEROL RISK RATIO 2.35 (<5); CREATININE FOR GFR 1.03 MG/DL (0.55-1.30); GLOMERULAR FILTRATION RATE 55.9 (>39); GLUCOSE, FASTING 108 MG/DL (74-106); HDL CHOLESTEROL 75.7 MG/DL (>40); LDL CHOLESTEROL 83.5 MG/DL (<100); NON-HDL-C 102.3 MG/DL; SODIUM LEVEL 140 MMOL/L (136-145); TOTAL PROTEIN 7.2 G/DL (5.7-8.2); TRIGLYCERIDES LEVEL 94 MG/DL (<150)
[2023-11-20 13:14] LABS: THYROID STIMULATING HORMONE 1.192 uIU/ML (0.55-4.78); TOTAL 25(OH) VITAMIN D 57.1 NG/ML (20.0-100.0)
[2023-11-20 13:15] LABS: VITAMIN B12 LEVEL 419 PG/ML (211-911)
== END ==
LOC: M PLALAB 09:54
PROVIDERS: ATTEND Internal Medicine Hematology
DX: I10 Essential (primary) hypertension (principal); Z79.899 Other long term (current) drug therapy

== ENCOUNTER → 2023-11-27 | Outpatient (CLI) | payer MEDICAID, MEDICARE | LOC: M WHC 10:47 | PROVIDERS: ATTEND Internal Medicine Hematology | DX: Z12.31 Encounter for screening mammogram for malignant neoplasm of breast (principal) ==

== ENCOUNTER → 2024-12-24 | Outpatient (CLI) | payer MEDICARE, MEDICAID ==
[2024-12-24 12:47] LABS: PLATELET COUNT, AUTOMATED 286 10^3/uL (150-450)
[2024-12-24 13:27] LABS: ALT/SGPT 15.0 U/L (7.0-40); AST/SGOT 16.0 U/L (<34); CALCIUM LEVEL 9.5 MG/DL (8.3-10.6); CARBON DIOXIDE LEVEL 29.0 MMOL/L (20-31); CHLORIDE LEVEL 104.0 MMOL/L (98-107); CHOLESTEROL LEVEL 177.0 MG/DL (<200); CHOLESTEROL RISK RATIO 2.61 (<5); CREATININE FOR GFR 0.92 MG/DL (0.55-1.30); GLOMERULAR FILTRATION RATE 65.3 (>39); LDL CHOLESTEROL 84.8 MG/DL (<100); NON-HDL-C 109.4 MG/DL; POTASSIUM SERUM 4.1 MMOL/L (3.5-5.1); SODIUM LEVEL 144.0 MMOL/L (136-145); TRIGLYCERIDES LEVEL 123.0 MG/DL (<150)
[2024-12-24 13:28] LABS: TOTAL 25(OH) VITAMIN D 62.2 NG/ML (20.0-100.0)
[2024-12-24 14:11] LABS: ESTIMATED AVERAGE GLUCOSE 114.0 MG/DL (60-110)
== END ==
LOC: M WUC 09:17
PROVIDERS: ATTEND Family Medicine
DX: Z01.84 Encounter for antibody response examination (principal); G25.81 Restless legs syndrome; Z83.3 Family history of diabetes mellitus; I10 Essential (primary) hypertension; E78.2 Mixed hyperlipidemia; Z79.899 Other long term (current) drug therapy; R63.8 Other symptoms and signs concerning food and fluid intake